=== PATIENT | female | born 1960 | race African-American/Black ===

== ENCOUNTER 2017-06-14 13:40 | Inpatient (IN) | payer BC, MEDICAID ==
[~2017-06-14] VITALS: Ht 157.5 cm; Wt 91.2 kg
[~2017-06-14 13:40] MED LIST: ALBU8.5H8 INH; DEXT10TA7 PO; LORA2TAB PO; NAPR220T66 PO; OXYC-132 PO
[2017-06-14 15:03] LABS: CREATININE 0.8 mg/dL (0.6-1.3); POTASSIUM 3.9 mmol/L (3.5-5.1)
[2017-06-14 15:15] LABS: BILIRUBIN,TOTAL 0.5 mg/dL (0.2-1.0); TOTAL PROTEIN, SERUM 8.1 g/dL (6.4-8.2)
--- NOTE | 2017-06-14 15:37 | NUR ---
MD RECHECK PT'S BLADDER POST VOID, 12 ML RESIDUAL NOTED. PT TOLORATED WELL.
--- NOTE | 2017-06-14 15:38 | NUR ---
TEXTED DR. ROSENBERG FOR MRI APPROVAL.
[2017-06-14] MEDS ORDERED: GLIP5TAB13 PO (15:46)
[2017-06-14] MEDS ORDERED: METF500T4 PO (15:46)
[2017-06-14 16:18] LABS: BASOPHILS % (AUTO) 0.4 % (0.0-2.0); EOSINOPHILS % (AUTO) 0.3 % (0.0-7.0); HEMATOCRIT 44.5 % (37-47); HEMOGLOBIN 14.8 G/DL (12.0-16.0); LYMPHOCYTES # (AUTO) 1.5 K/UL (0.8-4.8); LYMPHOCYTES % (AUTO) 18.1 % (20.5-51.5); MEAN CORPUSCULAR HEMOGLOBIN 29.1 UUG (27.0-31.0); MEAN CORPUSCULAR HGB CONC 33 g/dL (32.0-37.0); MEAN CORPUSCULAR VOLUME 87.9 FL (81.0-99.0); MONOCYTES # (AUTO) 0.4 K/UL (0.1-1.30); MONOCYTES % (AUTO) 4.7 % (0.0-11.0); NEUTROPHILS # (AUTO) 6.3 K/UL (1.8-8.9); NEUTROPHILS % (AUTO) 76.5 % (38.5-71.5); PLATELET COUNT (AUTO) 263 K/UL (150-450); RED BLOOD CELL COUNT(AUTO) 5.07 MIL/UL (4.2-5.4); WHITE BLOOD COUNT (AUTO) 8.2 K/UL (4.0-11.2)
--- NOTE | 2017-06-14 17:58 | NUR ---
pt transfered to floor in stable condition
[2017-06-14 18:34] VITALS: BP 171/104
--- NOTE | 2017-06-14 18:52 | NUR ---
ADMISSION PROTOCOL INITIATED, PT BP 171/104 NOTIFIED. ORDERS RECEIVED AND FOLLOWED THROUGH. PT HAS NO PAIN AT THIS TIME, ORIENTED TO ROOM CALL LIGHT IN REACH, PT WAS TOLD TO CALL BEFORE GETTING UP FOR ASSISTANCE, PT VERBALIZED UNDERSTANDING, NIHSS STROKE SCALE COMPLETED, EDUCATION PROVIDED, BED ALARM ON FOR SAFETY
[2017-06-14 20:19] VITALS: BP 142/90
[2017-06-15 00:14] VITALS: BP 117/79
[2017-06-15 04:00] VITALS: BP 116/74
--- NOTE | 2017-06-15 06:30 | NUR ---
PT SLEPT WELL, IN NO ACUTE DISTRESS. SPOUSE AT BEDSIDE. CALL LIGHT WITHIN REACH. WILL CONTINUE TO MONITOR.
[2017-06-15 06:44] LABS: BASOPHILS % (AUTO) 0.5 % (0.0-2.0); EOSINOPHILS % (AUTO) 0.7 % (0.0-7.0); HEMATOCRIT 40.4 % (37-47); HEMOGLOBIN 13.4 G/DL (12.0-16.0); LYMPHOCYTES # (AUTO) 1.7 K/UL (0.8-4.8); LYMPHOCYTES % (AUTO) 24.2 % (20.5-51.5); MEAN CORPUSCULAR HEMOGLOBIN 29.5 UUG (27.0-31.0); MEAN CORPUSCULAR HGB CONC 33 g/dL (32.0-37.0); MEAN CORPUSCULAR VOLUME 88.6 FL (81.0-99.0); MONOCYTES # (AUTO) 0.5 K/UL (0.1-1.30); MONOCYTES % (AUTO) 6.6 % (0.0-11.0); NEUTROPHILS # (AUTO) 4.7 K/UL (1.8-8.9); PLATELET COUNT (AUTO) 259 K/UL (150-450); WHITE BLOOD COUNT (AUTO) 6.9 K/UL (4.0-11.2)
[2017-06-15 06:54] LABS: RED BLOOD CELL COUNT(AUTO) 4.56 MIL/UL (4.2-5.4)
[2017-06-15 07:09] LABS: BILIRUBIN,TOTAL 0.5 mg/dL (0.2-1.0); CREATININE 0.8 mg/dL (0.6-1.3); MAGNESIUM 1.8 mg/dL (1.8-2.4); PHOSPHOROUS 3.9 mg/dL (2.5-4.9); POTASSIUM 3.8 mmol/L (3.5-5.1)
[2017-06-15 11:45] VITALS: BP 123/64
[2017-06-15 12:30] LABS: THYROID STIMULATING HORMONE 3.865 mIU/mL (0.358-3.740)
[2017-06-15 13:40] VITALS: BP 100/62
--- NOTE | 2017-06-15 20:24 | NUR ---
patient alert and oriented. patient discharged AMA nurse case management talked to her the plan. but she didnt agree for transfer to other hospital.AMD aware. Patient decided to signed AMA. stable condition and vital signed.
== END 2017-06-15 14:05 | disposition left against medical advice (07) | DRG 43 ==
LOC: ER 13:43 → MED 17:33 → TELE 18:01
PROVIDERS: ADMIT Internal Medicine; ATTEND Internal Medicine
DX: G35 Multiple sclerosis (principal); E11.65 Type 2 diabetes mellitus with hyperglycemia; I10 Essential (primary) hypertension; R53.1 Weakness; R26.9 Unspecified abnormalities of gait and mobility; E03.9 Hypothyroidism, unspecified; E78.5 Hyperlipidemia, unspecified; J45.909 Unspecified asthma, uncomplicated; M19.90 Unspecified osteoarthritis, unspecified site; N20.0 Calculus of kidney; Z86.73 Personal history of transient ischemic attack (TIA), and cerebral infarction without residual deficits; Z87.440 Personal history of urinary (tract) infections; Z91.81 History of falling; E66.01 Morbid (severe) obesity due to excess calories; Z79.899 Other long term (current) drug therapy; Z79.84 Long term (current) use of oral hypoglycemic drugs; M51.16 Intervertebral disc disorders with radiculopathy, lumbar region; G89.29 Other chronic pain; D18.03 Hemangioma of intra-abdominal structures; Z68.36 Body mass index [BMI] 36.0-36.9, adult
CPT/HCPCS: 36415; 70030-TC; 70450; 73502; 83735; 84100; 84443; 85025; 85610; 86140; A4663; J1815; J1885; J2270; J2405; J3490; J7050; Q9967

== ENCOUNTER 2018-06-05 08:12 | Emergency (ER) | payer MEDICAID ==
[~2018-06-05] VITALS: Ht 157.5 cm; Wt 94.8 kg
[~2018-06-05 08:12] MED LIST changes: +ACET325T53 PO; +ASPI-618 PO; +ATOR20TA PO; +ESCI10TA PO; +GABA600T2 PO; +GLIP5TAB13 PO; +HYDR-548 PO; +LEVO25TA9 PO; -LORA2TAB PO; +LOSARTAN PO; +METF500T6 PO; -NAPR220T66 PO; -OXYC-132 PO
--- NOTE | 2018-06-05 09:01 | NUR ---
Pt to xray via w/c, NAD noted.
--- NOTE | 2018-06-05 09:20 | NUR ---
Patient discharged to home in stable conditon with . Written and verbal after care instructions given. Patient verbalizes understanding of instructions. Stressed follow up with pmd or return to ER for worsening s/s.
== END 2018-06-05 09:21 | disposition home or self-care (01) ==
LOC: ER 08:12
DX: S29.011A Strain of muscle and tendon of front wall of thorax, initial encounter (principal); J20.9 Acute bronchitis, unspecified; I10 Essential (primary) hypertension; E78.5 Hyperlipidemia, unspecified; J45.909 Unspecified asthma, uncomplicated; E11.9 Type 2 diabetes mellitus without complications; E03.9 Hypothyroidism, unspecified; Z88.0 Allergy status to penicillin; Z86.73 Personal history of transient ischemic attack (TIA), and cerebral infarction without residual deficits; Z90.710 Acquired absence of both cervix and uterus; X58.XXXA Exposure to other specified factors, initial encounter; Y93.89 Activity, other specified; Y92.89 Other specified places as the place of occurrence of the external cause; Y99.8 Other external cause status
CPT/HCPCS: 71046; 93005; A4663

== ENCOUNTER 2018-09-10 09:31 | Emergency (ER) | payer MEDICAID ==
[~2018-09-10] VITALS: Ht 157.5 cm; Wt 94.3 kg
[~2018-09-10 09:31] MED LIST changes: +HYDR-4354 PO; -HYDR-548 PO; +METF-440 PO; -METF500T6 PO
--- NOTE | 2018-09-10 10:43 | NUR ---
Patient was seen by MD for persistent cough. DC, Rx and follow up instructions given and explained to patient who states she understands all instructions.
== END 2018-09-10 10:46 | disposition home or self-care (01) ==
LOC: ER 09:31
DX: J45.909 Unspecified asthma, uncomplicated (principal); J18.9 Pneumonia, unspecified organism; I10 Essential (primary) hypertension; E78.5 Hyperlipidemia, unspecified; E11.9 Type 2 diabetes mellitus without complications; E03.9 Hypothyroidism, unspecified; Z90.710 Acquired absence of both cervix and uterus; Z79.82 Long term (current) use of aspirin; Z79.84 Long term (current) use of oral hypoglycemic drugs; Z79.899 Other long term (current) drug therapy; Z79.891 Long term (current) use of opiate analgesic; Z88.0 Allergy status to penicillin
CPT/HCPCS: A4663

== ENCOUNTER 2019-04-11 22:04 | Emergency (ER) | payer MEDICAID ==
[~2019-04-11] VITALS: Ht 157.5 cm; Wt 81.6 kg
[~2019-04-11 22:04] MED LIST changes: +GABA600T12 PO; -GABA600T2 PO
--- NOTE | 2019-04-11 22:27 | NUR ---
CORY BARRERA at bedside.
[2019-04-11] MEDS ORDERED: ALBUTEROL SULFATE 2.5 MG/3 ML NEBU NEB ONE (22:30)
[2019-04-11] MEDS ORDERED: IPRATROPIUM BROMIDE 0.5 MG/2.5 ML NEBU NEB ONE (22:30)
[2019-04-11] MEDS ORDERED: predniSONE 10 MG TABLET PO ONE (22:30)
[2019-04-11] MEDS ORDERED: predniSONE 20 MG TABLET ONE (22:39)
--- NOTE | 2019-04-11 22:41 | NUR ---
RT at bedside, Xray at bedside.
[2019-04-11] MEDS ORDERED: IPRATROPIUM BROMIDE 0.5 MG/2.5 ML NEBU ONE (22:46)
[2019-04-11] MEDS ORDERED: ALBUTEROL SULFATE 2.5 MG/3 ML NEBU ONE (22:46)
--- NOTE | 2019-04-11 23:06 | NUR ---
Patient discharged to home in stable conditon. Written and verbal after care instructions given. Patient verbalizes understanding of instructions. Ambulated from ER with stable gait. All belongings with patient.
[2019-04-11 23:08] VITALS: BP 141/87
== END 2019-04-11 23:08 | disposition home or self-care (01) ==
LOC: ER 22:04
DX: J20.9 Acute bronchitis, unspecified (principal); F41.9 Anxiety disorder, unspecified; F13.20 Sedative, hypnotic or anxiolytic dependence, uncomplicated; I10 Essential (primary) hypertension; E78.5 Hyperlipidemia, unspecified; J45.909 Unspecified asthma, uncomplicated; E11.9 Type 2 diabetes mellitus without complications; E03.9 Hypothyroidism, unspecified; Z90.710 Acquired absence of both cervix and uterus; Z88.0 Allergy status to penicillin; Z79.82 Long term (current) use of aspirin; Z79.899 Other long term (current) drug therapy; Z86.73 Personal history of transient ischemic attack (TIA), and cerebral infarction without residual deficits
CPT/HCPCS: 71045; 94640; 99283; J7512; A4663; J3590

== ENCOUNTER 2019-10-02 20:30 | Emergency (ER) | payer MEDICAID ==
[~2019-10-02] VITALS: Ht 157.5 cm; Wt 91.2 kg
[2019-10-02] MEDS ORDERED: ACETAMINOPHEN ES 500 MG TABLET ONE (21:05)
[2019-10-02] MEDS ORDERED: predniSONE 10 MG TABLET ONE (21:05)
[2019-10-02] MEDS ORDERED: predniSONE 50 MG TABLET ONE (21:05)
[2019-10-02] MEDS ORDERED: GUAIFENESIN/CODEINE 5 ML LIQUID UDC ONE (21:06)
[2019-10-02] MEDS: ACETAMINOPHEN ES 500 MG TABLET PO ONE (21:11)
[2019-10-02] MEDS: GUAIFENESIN/CODEINE 5 ML LIQUID UDC PO ONE (21:11)
[2019-10-02] MEDS: predniSONE 20 MG TABLET PO ONE (21:11)
[2019-10-02] MEDS: OSELTAMIVIR PHOSPHATE 75 MG CAPSULE PO ONE (21:49)
[2019-10-02] MEDS ORDERED: OSELTAMIVIR PHOSPHATE 75 MG CAPSULE ONE (21:50)
--- NOTE | 2019-10-02 21:51 | NUR ---
Patient discharged to home in stable conditon. Written and verbal after care instructions given. Patient verbalizes understanding of instructions.pt walks in steady gait. pt with
[2019-10-02 21:52] VITALS: BP 129/84
== END 2019-10-02 21:52 | disposition home or self-care (01) ==
LOC: ER 20:30
DX: J20.9 Acute bronchitis, unspecified (principal); J09.X2 Influenza due to identified novel influenza A virus with other respiratory manifestations; I10 Essential (primary) hypertension; E78.5 Hyperlipidemia, unspecified; J45.909 Unspecified asthma, uncomplicated; E11.9 Type 2 diabetes mellitus without complications; E03.9 Hypothyroidism, unspecified; Z90.710 Acquired absence of both cervix and uterus; Z88.0 Allergy status to penicillin; Z79.82 Long term (current) use of aspirin; Z79.899 Other long term (current) drug therapy
CPT/HCPCS: 71045; 87400; 99284; J7512 ×2; A4663; A9150

== ENCOUNTER 2019-11-30 18:24 | Emergency (ER) | payer MEDICAID ==
[~2019-11-30] VITALS: Ht 157.5 cm; Wt 86.2 kg
--- NOTE | 2019-11-30 18:37 | NUR ---
Dr Russ at the bedside for MSE.
[2019-11-30 18:42] VITALS: BP 149/99
--- NOTE | 2019-11-30 18:44 | NUR ---
Patient discharged to home in stable conditon. Written and verbal after care instructions given. Patient verbalizes understanding of instructions.
== END 2019-11-30 18:44 | disposition home or self-care (01) ==
LOC: ER 18:24
DX: J06.9 Acute upper respiratory infection, unspecified (principal); E03.9 Hypothyroidism, unspecified; I10 Essential (primary) hypertension; E78.5 Hyperlipidemia, unspecified; J45.909 Unspecified asthma, uncomplicated; G89.29 Other chronic pain; F41.9 Anxiety disorder, unspecified; Z86.73 Personal history of transient ischemic attack (TIA), and cerebral infarction without residual deficits; Z79.899 Other long term (current) drug therapy; Z88.1 Allergy status to other antibiotic agents; Z79.82 Long term (current) use of aspirin
CPT/HCPCS: A4663

== ENCOUNTER 2019-12-07 17:45 | Emergency (ER) | payer MEDICAID ==
[~2019-12-07] VITALS: Ht 157.5 cm; Wt 86.2 kg
--- NOTE | 2019-12-07 18:29 | NUR ---
Patient discharged to home in stable conditon. Written and verbal after care instructions given. Patient verbalizes understanding of instructions.
[2019-12-07 18:30] VITALS: BP 157/91
== END 2019-12-07 18:32 | disposition home or self-care (01) ==
LOC: ER 17:49
DX: J06.9 Acute upper respiratory infection, unspecified (principal); E78.5 Hyperlipidemia, unspecified; I10 Essential (primary) hypertension; J45.909 Unspecified asthma, uncomplicated; E11.9 Type 2 diabetes mellitus without complications; E03.9 Hypothyroidism, unspecified; F41.9 Anxiety disorder, unspecified; Z90.710 Acquired absence of both cervix and uterus; Z88.0 Allergy status to penicillin; Z86.73 Personal history of transient ischemic attack (TIA), and cerebral infarction without residual deficits; Z79.899 Other long term (current) drug therapy; Z79.82 Long term (current) use of aspirin; Z79.84 Long term (current) use of oral hypoglycemic drugs
CPT/HCPCS: A4663

== ENCOUNTER 2022-02-12 21:14 | Emergency (ER) | payer MEDICAID ==
[~2022-02-12] VITALS: Ht 157.5 cm; Wt 79.4 kg
--- NOTE | 2022-02-12 21:29 | NUR ---
Patient's at bedside
--- NOTE | 2022-02-12 21:30 | NUR ---
DR Taylor in room for BIBI
--- NOTE | 2022-02-12 21:50 | NUR ---
Patient taken down for CT
[2022-02-12] MEDS ORDERED: MAGNESIUM SULFATE/D5W 200 ML ONE (22:27)
[2022-02-12] MEDS ORDERED: MAGNESIUM SULFATE 2 GM in IV DEXTROSE 5% 100 ML IV ONE (22:30)
[2022-02-12 22:34] LABS: HEMATOCRIT 42.2 % (31.2-41.9); MEAN CORPUSCULAR HEMOGLOBIN 30.5 uug (24.7-32.8); MEAN CORPUSCULAR VOLUME 89.3 fL (75.5-95.3); PLATELET COUNT (AUTO) 284 K/uL (179-408)
[2022-02-12 22:41] LABS: CARBON DIOXIDE 28 mmol/L (21-32); CHLORIDE 97 mmol/L (98-107); CREATININE 0.8 mg/dL (0.6-1.3); POTASSIUM 3.9 mmol/L (3.5-5.1); UREA NITROGEN, BLOOD 9 mg/dL (7-18)
[2022-02-12 22:57] LABS: ALANINE AMINOTRANSFERASE 23 U/L (14-59); ALKALINE PHOSPHATASE 153 U/L (50-136); ASPARTATE AMINOTRANSFERASE < 5 U/L (15-37); BILIRUBIN,DIRECT 0.1 mg/dL (0.0-0.2); BILIRUBIN,TOTAL 0.3 mg/dL (0.2-1.0); TOTAL PROTEIN, SERUM 7.5 g/dL (6.4-8.2)
--- NOTE | 2022-02-12 22:59 | NUR ---
Lab called for critical result Glucose 400. Dr. Taylor notified.
[2022-02-12 23:02] LABS: MAGNESIUM 1.9 mg/dL (1.8-2.4)
--- NOTE | 2022-02-12 23:26 | NUR ---
Patient walked with steady gait in the bathroom with a use of cane
[2022-02-12 23:33] LABS: GLUCOSE 400 mg/dL (74-106)
[2022-02-12 23:50] LABS: *BILIRUBIN,URIN NEGATIVE (NEGATIVE); *BLOOD, URINE NEGATIVE (NEGATIVE); *CLARITY,URINE CLEAR (CLEAR); *COLOR,URINE YELLOW (YELLOW); *KETONES,URINE 1+ (NEGATIVE); *UROBILINOGEN,URINE 0.2 E.U./dl (NORMAL); LEUKOCYTE ESTERASE ,URINE NEGATIVE (NEGATIVE); NITRITE, URINE NEGATIVE (NEGATIVE); PH,URINE 6.5 (5.0-8.0); UGLUCOSE 2+ (NEGATIVE)
[2022-02-13 00:39] LABS: BACTERIA,URINE NONE SEEN /HPF (NONE SEEN); RBC,URINE 0-3 /HPF (0-3); SQUAMOUS EPITHELIAL CELL,UR MODERATE /HPF (NONE SEEN); WBC,URINE 0-3 /HPF (0-3)
--- NOTE | 2022-02-13 00:56 | NUR ---
Patient discharged to home in stable condition. Written and verbal after care instructions given. Patient verbalizes understanding of instructions. Stressed follow up or return to ER for worsening s/s. Patient is A/Ox4, no SOB, not in distress.
[2022-02-13 01:08] VITALS: BP 138/98
== END 2022-02-13 00:56 | disposition home or self-care (01) ==
LOC: ER 21:17
DX: M62.838 Other muscle spasm (principal); E83.42 Hypomagnesemia; E11.65 Type 2 diabetes mellitus with hyperglycemia; Z79.84 Long term (current) use of oral hypoglycemic drugs; I10 Essential (primary) hypertension; E03.9 Hypothyroidism, unspecified; E66.9 Obesity, unspecified; Z68.32 Body mass index [BMI] 32.0-32.9, adult; E78.5 Hyperlipidemia, unspecified; Z86.73 Personal history of transient ischemic attack (TIA), and cerebral infarction without residual deficits; G89.29 Other chronic pain; Z88.0 Allergy status to penicillin; F41.9 Anxiety disorder, unspecified
CPT/HCPCS: 36415; 70450; 71045; 80048; 80076; 81001; 82607; 83605; 83735; 84484; 85025; 85651; 85730; 93005; 96365; 99285; J3475 ×2; A4663

== ENCOUNTER 2022-11-30 04:42 | Emergency (ER) | payer MEDICAID ==
[~2022-11-30] VITALS: Ht 157.5 cm; Wt 72.1 kg
[2022-11-30 05:15] LABS: HEMATOCRIT 40.3 % (31.2-41.9); MEAN CORPUSCULAR HEMOGLOBIN 30.2 uug (24.7-32.8); MEAN CORPUSCULAR VOLUME 90.1 fL (75.5-95.3); PLATELET COUNT (AUTO) 428 K/uL (179-408)
[2022-11-30] MEDS ORDERED: HYDROMORPHONE 1 MG/1 ML DISP.SYRIN ONE ×3 (05:25→08:44)
[2022-11-30] MEDS ORDERED: HYDROMORPHONE 1 MG/1 ML DISP.SYRIN IM ONE (05:30)
[2022-11-30 05:45] LABS: ALANINE AMINOTRANSFERASE 15 U/L (14-59); ALKALINE PHOSPHATASE 188 U/L (50-136); ASPARTATE AMINOTRANSFERASE 5 U/L (15-37); BILIRUBIN,DIRECT 0.1 mg/dL (0.0-0.2); BILIRUBIN,TOTAL 0.3 mg/dL (0.2-1.0); CARBON DIOXIDE 26 mmol/L (21-32); CHLORIDE 98 mmol/L (98-107); CREATININE 0.7 mg/dL (0.6-1.3); POTASSIUM 3.7 mmol/L (3.5-5.1); TOTAL PROTEIN, SERUM 7.5 g/dL (6.4-8.2); UREA NITROGEN, BLOOD 14 mg/dL (7-18)
[2022-11-30 05:47] LABS: GLUCOSE 393 mg/dL (74-106)
[2022-11-30] MEDS ORDERED: IV NS 1000 ML 1,000 ML IV ONE (06:00)
[2022-11-30 06:03] LABS: *BILIRUBIN,URIN NEGATIVE (NEGATIVE); *BLOOD, URINE NEGATIVE (NEGATIVE); *CLARITY,URINE CLEAR (CLEAR); *COLOR,URINE YELLOW (YELLOW); *KETONES,URINE 2+ (NEGATIVE); *UROBILINOGEN,URINE 0.2 E.U./dl (NORMAL); LEUKOCYTE ESTERASE ,URINE NEGATIVE (NEGATIVE); NITRITE, URINE NEGATIVE (NEGATIVE); PH,URINE 5.5 (5.0-8.0)
[2022-11-30 06:04] LABS: UGLUCOSE 2+ (NEGATIVE)
--- NOTE | 2022-11-30 07:15 | NUR ---
Received patient awake in bed. Normal saline bolus running. IV on the right AC 20G flushing, patent, and intact. Patient AO x 4. States pain medication is starting to help. Will continue to monitor. Safety precautions in place.
[2022-11-30] MEDS ORDERED: HYDROMORPHONE 1 MG/1 ML DISP.SYRIN IV ONE ×2 (08:15→08:45)
--- NOTE | 2022-11-30 09:14 | NUR ---
Patient discharged to home in stable condition. IV removed. Written and verbal after care instructions given. Patient verbalizes understanding of instructions. Stressed appointment outpatient for mammogram and biopsy. Stressed follow up or return to ER for worsening s/s.
[2022-11-30 09:20] VITALS: BP 152/83
== END 2022-11-30 09:22 | disposition home or self-care (01) ==
LOC: ER 04:44
DX: N64.4 Mastodynia (principal); N63.20 Unspecified lump in the left breast, unspecified quadrant; G35 Multiple sclerosis; E03.9 Hypothyroidism, unspecified; E11.9 Type 2 diabetes mellitus without complications; Z79.890 Hormone replacement therapy; Z86.73 Personal history of transient ischemic attack (TIA), and cerebral infarction without residual deficits; Z79.899 Other long term (current) drug therapy; Z79.84 Long term (current) use of oral hypoglycemic drugs; E78.5 Hyperlipidemia, unspecified; I10 Essential (primary) hypertension; J45.909 Unspecified asthma, uncomplicated; Z90.710 Acquired absence of both cervix and uterus; G89.29 Other chronic pain; Z88.0 Allergy status to penicillin
CPT/HCPCS: 99285; 96374; 96361; 80076; 80048; 81003; 82009; 85025; 84484; 36415; 76642; 96376; J1170 ×3; J7040; A4663